=== PATIENT | female | born 1980 | race Caucasian/White ===

== ENCOUNTER → 2021-10-24 09:00 | Outpatient (CLI) | payer OTHER, SELFPAY ==
[2021-10-24 19:58] LABS: Add Manual Diff / Slide Review NO; Basophils Absolute Auto 0 /uL (0-100); Basophils Percent Auto 0.3 % (0-2); Eosinophils Absolute Auto 100 /uL (0-450); Eosinophils Percent Auto 1.2 % (2-4); Hematocrit 37.7 % (36-46); Hemoglobin 12.7 g/dL (12.0-16.0); Lymphocytes Absolute Auto 900 /uL (1100-4500); Lymphocytes Percent Auto 15.7 % (25-40); Mean Corpuscular HGB Conc 33.7 % (30-36); Mean Corpuscular Volume 92.1 fL (80-100); Monocytes Absolute Auto 300 /uL (0-900); Monocytes Percent Auto 5.9 % (3-14); Neutrophils Absolute Auto 4300 /uL (1500-7000); Neutrophils Percent Auto 76.9 % (50-75); Platelet Count 167 X10^3/uL (150-400); Red Blood Cell Count 4.09 X10^6/uL (4.0-5.2); Red Cell Distribution Width 12.5 % (11.6-14.8); White Blood Cell Count 5.6 X10^3/uL (4.5-11.0)
[2021-10-24 20:05] LABS: HEMOLYSIS < 15 (0-50); Iron 108 ug/dL (37-170)
[2021-10-24 20:07] LABS: Alanine Aminotransferase 10 IU/L (<35); Albumin 4.2 g/dL (3.5-5.0); Albumin Globulin Ratio 1.3 (1.0-2.8); Alkaline Phosphatase 63 U/L (38-126); Aspartate Aminotransferase 22 IU/L (14-36); BUN Creatinine Ratio 12.7 (6-22); Bilirubin Total 0.7 mg/dL (0.2-1.3); Blood Urea Nitrogen 8 mg/dL (7-17); Calcium 8.9 mg/dL (8.4-10.2); Carbon Dioxide 26 mmol/L (22-32); Chloride 105 mmol/L (98-107); Cholesterol 142 mg/dL (140-199); Estimated Glomerular Filt Rate > 60 mL/min (>60); Globulin 3.3 g/dL (1.7-4.1); Glucose 89 mg/dL (70-100); HDL Cholesterol 64 mg/dL (40-60); HEMOLYSIS < 15 (0-50); LDL Cholesterol Calculated 68 mg/dL (<100); Potassium 4.2 mmol/L (3.4-5.1); Sodium 139 mmol/L (137-145); Total Protein 7.5 g/dL (6.3-8.2); Triglycerides 49 mg/dL (35-150)
[2021-10-24 20:17] LABS: Percent Iron Saturation 34 % (15-50); Total Iron Binding Capacity 318 ug/dL (265-497); Transferrin 237 mg/dL (206-381)
[2021-10-24 21:12] LABS: Folate 9.2 ng/mL (2.76-20.0); Vitamin B12 > 1000 pg/mL (239-931)
== END ==
PROVIDERS: PCP Family Medicine; Visit Provider Family Medicine
DX: Z00.00 Encounter for general adult medical examination without abnormal findings (principal); R41.89 Other symptoms and signs involving cognitive functions and awareness; Z85.828 Personal history of other malignant neoplasm of skin
CPT/HCPCS: 80053; 80061; 82607; 82746; 83540; 83550; 85025

== ENCOUNTER → 2021-11-08 08:43 | Outpatient (CLI) | payer OTHER, SELFPAY ==
[2021-11-09 06:10] LABS: Candida species Negative (Negative); Gardnerella vaginalis Negative (Negative); Trichomoas vaginalis Negative (Negative)
== END ==
PROVIDERS: PCP Family Medicine; Visit Provider Obstetrics & Gynecology
DX: N89.8 Other specified noninflammatory disorders of vagina (principal)
CPT/HCPCS: 87480; 87510; 87660

== ENCOUNTER → 2021-11-14 11:02 | Outpatient (CLI) | payer OTHER, SELFPAY ==
[2021-11-14 20:48] LABS: Erythrocyte Sedimentation Rate 7 MM/HR (0-20); Hemoglobin A1C% w Est Avg Glu 5.1 % (4.0-6.0)
[2021-11-14 21:08] LABS: Rheumatoid Factor < 8.6 IU/mL (<12.0)
[2021-11-14 21:17] LABS: TSH w/ Reflex to FT4 1.27 uIU/mL (0.47-4.68)
[2021-11-17 14:47] LABS: ANA Screen, IFA Negative (.)
[2021-11-19 21:41] LABS: CCP Antibodies IgG/IgA 9 units (0-19)
== END ==
PROVIDERS: PCP Family Medicine; Visit Provider Family Medicine
DX: R06.81 Apnea, not elsewhere classified (principal); R13.10 Dysphagia, unspecified; R41.89 Other symptoms and signs involving cognitive functions and awareness; R53.83 Other fatigue
CPT/HCPCS: 83036; 84443; 85651; 86038; 86200; 86430

== ENCOUNTER → 2022-03-26 11:44 | Outpatient (CLI) | payer OTHER, SELFPAY ==
--- NOTE | 2022-03-26 11:45 | DI.MG.S_ITS ---
BILATERAL DIGITAL DIAGNOSTIC MAMMOGRAM 3D/2D: 03/26/2022 CLINICAL: Additional evaluation requested from prior study. Comparison is made to exam dated: 01/31/2022 mammogram - outside location. Both breasts are extremely dense, which lowers the sensitivity of mammography (category d />75% glandular tissue). There is an oval asymmetry with a circumscribed margin in the left axilla seen on the mediolateral oblique view only. Density is comparable to the extremely dense glandular tissue seen elsewhere in the breast. No other significant masses, calcifications, or other findings are seen in either breast. Specifically, no finding to explain the patient's intermittent multifocal right breast pain. IMPRESSION: INCOMPLETE: NEEDS ADDITIONAL IMAGING EVALUATION The oval asymmetry in the left breast resembles fibroglandular tissue but remains indeterminate. An ultrasound is recommended. There is no mammographic correlate to the patient's right breast pain. Ultrasound is recommended for full evaluation of these areas. Ultrasound could not be done today, and will be scheduled and performed as soon as possible. Findings and recommendations were conveyed to the patient at time of exam. Based on Tyrer-Cuzick model (a risk assessment model), the patient's lifetime risk is 20.8% and her 10 year risk is 2.7%. If a patient has an elevated risk, a more comprehensive evaluation should be considered and/or a referral to a genetic counselor. The [place] [employer], [employer], and NCCN Guidelines advise the consideration of Breast MRI as an adjunct to screening mammography in patients whose Lifetime risk to develop breast cancer is 20% or higher. This exam was interpreted at Station ID: [id number]. NOTE: For mammograms, a report in lay terms will be sent to the patient. Approximately 15% of breast malignancies will not be visualized mammographically. In the management of a palpable breast mass, a negative mammogram must not discourage biopsy of a clinically suspicious lesion. Electronically Signed By: Merline montenegro/:03/26/2022 12:20:56 letter sent: Additional Imaging Needed ACR BI-RADS Category 0: Incomplete [id number]
== END ==
PROVIDERS: PCP Family Medicine; Referring Provider Family Medicine; Visit Provider Family Medicine
DX: R92.8 Other abnormal and inconclusive findings on diagnostic imaging of breast (principal); N64.89 Other specified disorders of breast
CPT/HCPCS: 77066; G0279

== ENCOUNTER → 2022-04-15 12:43 | Outpatient (CLI) | payer OTHER, SELFPAY ==
--- NOTE | 2022-04-15 | DI.US.S_ITS ---
ULTRASOUND OF LEFT BREAST AND AXILLA: 04/15/2022 CLINICAL: Patient returns today to evaluate an asymmetry in the left axilla. Comparison is made to exams dated: 03/26/2022 mammogram - [facility] and 01/31/2022 mammogram - outside location. Color flow and real-time ultrasound of the left breast axilla were performed. Merrill scale images of the real-time examination were reviewed. No significant abnormalities were seen sonographically in the left axilla. Benign left axillary lymph node is seen. The suspected left axillary ectopic breast tissue is not well appreciated. IMPRESSION: BENIGN There is no sonographic evidence of malignancy. No mass or adenopathy in the left axilla. A 1 year screening tomosynthesis mammogram is recommended. Exam findings were discussed with the patient. Emphasis on tomosynthesis mammogram was made due to the patients increased breast density. Patient would also benefit from a screening breast MRI. Tyrer-Cuzick model estimated patient's lifetime risk is 20.8%. This exam was interpreted at Station ID: [id number]. Electronically Signed By: Kong Daly M.D. [facility]/:04/15/2022 14:18:33 letter sent: Normal Exam Ultrasound BI-RADS: 2 Benign
--- NOTE | 2022-04-15 12:45 | DI.US.S_ITS ---
LIMITED ULTRASOUND OF RIGHT BREAST: 04/15/2022 CLINICAL: Focal right breast pain. Comparison is made to exams dated: 03/26/2022 mammogram - [facility] and 01/31/2022 mammogram - outside location. Real-time ultrasound of the right breast 9-1 o'clock region was performed. Merrill scale images of the real-time examination were reviewed. No significant abnormalities were seen sonographically in the right breast. IMPRESSION: NEGATIVE There is no sonographic evidence of malignancy in the region of right breast pain. A 1 year screening tomosynthesis mammogram is recommended. This exam was interpreted at Station ID: [id number]. Electronically Signed By: Kong Daly M.D. [facility]/:04/15/2022 13:51:04 letter sent: Normal Exam Ultrasound BI-RADS: 1 Negative
== END ==
PROVIDERS: PCP Family Medicine; Referring Provider Family Medicine; Visit Provider Family Medicine
DX: R92.8 Other abnormal and inconclusive findings on diagnostic imaging of breast (principal); N64.4 Mastodynia
CPT/HCPCS: 76642; 76882

== ENCOUNTER → 2022-09-04 13:32 | Outpatient (CLI) | payer OTHER, SELFPAY ==
[2022-09-04 19:25] LABS: Add Manual Diff / Slide Review NO; Basophils Absolute Auto 0 /uL (0-100); Basophils Percent Auto 0.4 % (0-2); Eosinophils Absolute Auto 0 /uL (0-450); Eosinophils Percent Auto 0.4 % (2-4); Hematocrit 37.6 % (36-46); Hemoglobin 12.7 g/dL (12.0-16.0); Lymphocytes Absolute Auto 1000 /uL (1100-4500); Lymphocytes Percent Auto 13.9 % (25-40); Mean Corpuscular HGB Conc 33.8 % (30-36); Mean Corpuscular Hemoglobin 31.3 PG (26-34); Mean Corpuscular Volume 92.7 fL (80-100); Monocytes Absolute Auto 400 /uL (0-900); Monocytes Percent Auto 5.1 % (3-14); Neutrophils Absolute Auto 6000 /uL (1500-7000); Neutrophils Percent Auto 80.2 % (50-75); Platelet Count 185 X10^3/uL (150-400); Red Blood Cell Count 4.06 X10^6/uL (4.0-5.2); Red Cell Distribution Width 12.7 % (11.6-14.8); White Blood Cell Count 7.5 X10^3/uL (4.5-11.0)
[2022-09-04 19:37] LABS: INR 1.1 (0.9-1.3); Prothrombin Time 12.9 SECONDS (10.1-12.7)
[2022-09-04 19:52] LABS: HEMOLYSIS < 15 (0-50); Iron 129 ug/dL (37-170)
[2022-09-04 20:01] LABS: Percent Iron Saturation 39 % (15-50); Total Iron Binding Capacity 327 ug/dL (265-497); Transferrin 233 mg/dL (206-381)
[2022-09-04 20:10] LABS: Vitamin D 25 Hydroxy (D3) 55.6 ng/mL (30.0-100.0)
[2022-09-04 20:56] LABS: Folate 5.9 ng/mL (2.76-20.0); Vitamin B12 Reflex MMA if <400 > 1000 pg/mL (239-931)
== END ==
PROVIDERS: PCP Physician Assistant; Visit Provider Physician Assistant
DX: E55.9 Vitamin D deficiency, unspecified (principal); K06.8 Other specified disorders of gingiva and edentulous alveolar ridge; R53.83 Other fatigue
CPT/HCPCS: 82306; 82607; 82746; 83540; 83550; 85025; 85610

== ENCOUNTER → 2023-10-01 11:36 | Outpatient (CLI) | payer BC, SELFPAY ==
[2023-10-01 14:19] LABS: Cancer Antigen 125 < 5.5 U/mL (0-35)
== END ==
PROVIDERS: PCP Student in an Organized Health Care Education/Training Program; Referring Provider Obstetrics & Gynecology; Visit Provider Obstetrics & Gynecology
DX: N83.8 Other noninflammatory disorders of ovary, fallopian tube and broad ligament (principal)
CPT/HCPCS: 36415; 86304

== ENCOUNTER 2023-10-20 09:20 | Day surgery (SDC) | payer BC, SELFPAY ==
[2023-10-16 09:15] VITALS: BMI 19.3
[2023-10-20] VITALS (7 sets, daily range): BP systolic 83–113; BP diastolic 39–68; PULSE 53–87; RESP 12–17; TEMP 36.4–37; O2SAT 99–100; BMI 19.3
--- NOTE | 2023-10-20 | PATH_ITS ---
[facility] Accession Number: [id number] No. of containers..01 Tissue . 01 Material submitted: . ovary - LEFT OVARY, BILATERAL FALLOPIAN TUBES . 01 Diagnosis: LEFT OVARY AND BILATERAL FALLOPIAN TUBES, BILATERAL SALPINGECTOMY AND LEFT OOPHORECTOMY: Consistent with benign serous cystadenoma. Bilateral fimbriated fallopian tubes with no significant diagnostic alterations. No malignancy. [facility] 10/24/2023 1412 Local . 01 Electronically signed: . Miranda Henderson MD, Pathologist NPI- [id number] . 01 Gross description: . Received in formalin with two patient identifiers and left ovary, bilateral fallopian tubes, are two fimbriated fallopian tubes, the left tube is attached to the presumed left ovary and measures 5.1 x 0.9 cm, while the left ovary weighs 18 grams, and measures 4.3 x 3.4 x 2.7 cm. The right fallopian tube measures 5.2 x 0.8 cm. Both tubes have violaceous smooth serosa with no cysts identified and unremarkable stellate lumens. . The left ovary is sanz and slightly distended, and is inked blue. Sectioning reveals a multiloculated cystic structure occupying the entirety of the cut surface with contents ranging from sanz and serous to yellow and gelatinous to semi-solid and hemorrhagic. The viramontes average 0.2 cm thick with some of the thicker areas of the wall consistent with distorted unremarkable ovarian parenchyma. No excrescences are identified. Filler Shredding Machine Loader sections are submitted as follows: . A1: Left fallopian tube to include one-half of bisected fimbriae and cross sections. A2: Right fallopian tube to include one-half of bisected fimbriae and cross sections. A3: Filler Shredding Machine Loader ovarian cyst. ([id number]) /MRV 10/24/2023 1413 Local . 01 Pathologist provided ICD-10: D27.1 . 01 CPT . 071888 Specimen Comment: A courtesy copy of this report has been sent to [phone] Performed at: [address] [id number] MD Noah Stephenson MD Phone: [phone]
--- NOTE | 2023-10-20 | PATH_ITS ---
Note [facility] Accession Number: [id number] TESTS RESULT FLAG UNITS REF RANGE LAB Clinician Provided Cytology Information No. of containers..01 Other (Miscellaneous) Source: LEFT OVARIAN CYST FLUID DIAGNOSIS: LEFT OVARIAN CYST FLUID, ASPIRATION. NEGATIVE FOR MALIGNANT CELLS. RARE MACROPHAGES AND PROTEINACEOUS MATERIAL, COMPATIBLE WITH CYST CONTENTS. NO EPITHELIAL CELLS ARE SEEN. SCANT CELLULARITY. THIS INTERPRETATION INCLUDES EVALUATION OF A CELL BLOCK. Pathologist ICD10: N83.292 Signed out by: Martine Hurd MD, Pathologist NPI- [id number] Performed by: Wenceslao Reyes, Sleeve Turner ([facility]) Gross description: 7 CC, YELLOW, HAZY RECEIVED: FRESH IN BLUE CAP CONTAINER.VO /VDU 10/21/2023 0835 Local FLAG LEGEND: L-Low Normal,H-High Normal,LL-Alert Low,HH-Alert High <-Panic Low,>-Panic High,A-Abnormal,AA-Critical Abnormal Performed at: 01 =Z [facility] [address], [place] [address] Noah Stephenson MD, Performed at: [address] [facility] [address], [place], [place] [id number] MD Noah Stephenson MD Phone: [phone]
--- NOTE | 2023-10-20 11:01 | P.HPOB_ITS ---
History of Present Illness History of Present Illness Reason for admission: pelvic mass Narrative: Diana Kline is a 43 year old female G0 who presents for a laparoscopic removal of left ovary and bilateral tubes secondary to a complex left ovarian cyst. Normal CA 125 Patient also has a tight band in the vagina that I will release. [facility] Medical History (Updated 10/16/23 @ 09:26 by Tiesha Ledesma RN) Anesthesia complication Vulvar atrophy Vaginal discharge Fatigue Dysphagia Breathlessness Wears glasses Eczema (~2012) Acne Asthma Restless leg syndrome Lower back injury (~2006) Scoliosis (~1994) Chicken pox (~1986) Raynaud disease Preventative health care Cognitive impairment History of basal cell cancer Surgical History Anesthesia [place] teeth removed Status post Mohs surgery History of rhinoplasty (~2007) Family History Mother Hypothyroidism History of hip replacement Sister Brain tumor (benign) Grandfather Cancer Grandmother History of brain shunt Breast cancer Family/Other Shingles Family/Other Cancer Social History household members: spouse Smoking Status: Never smoker alcohol intake: current Meds Home Medications and Allergies Home Medications Medication Instructions Recorded Confirmed Type adapalene 0.1 %-benzoyl peroxide 1 applic topical DAILY 10/30/21 10/20/23 History 2.5 % topical gel with pump (Epiduo) cholecalciferol (vitamin D3) 25 25 mcg PO DAILY 10/30/21 10/20/23 History mcg (1,000 unit) capsule vitamin B complex (B 1 tab PO DAILY 10/30/21 10/20/23 History Complex-Vitamin B12 tablet) levonorgestrel 21 mcg/24 hours (8 intrauterine 11/07/21 10/01/23 History yrs) 52 mg intrauterine device (Mirena) ginkgo biloba leaf extract 120 mg 120 mg PO DAILY To try to improve 08/27/22 10/20/23 History capsule my memory. lysine 500 mg tablet (L-Lysine) 500 mg PO DAILY To try to improve 08/27/22 10/20/23 History my memory. estradiol 0.01% (0.1 mg/gram) See Rx Instructions vaginal DAILY 12/16/22 10/20/23 Rx vaginal cream (Estrace) #42.5 grams Allergies Allergy/AdvReac Type Severity Reaction Status Date / Time Sulfa (Sulfonamide Allergy Intermediate Hives Verified 10/20/23 09:40 Antibiotics) Exam Vital Signs (past 8 hours): - 10/20/23 09:54 Temperature 98.2 F Pulse Rate 87 Respiratory Rate 17 Blood Pressure 113/68 Pulse Oximetry 100 Oxygen Delivery Method Room Air Oxygen Delivery Method Room Air Narrative Exam Narrative: HEENT: No thyromegaly, no anterior cervical or supraclavicular lymphadenopathy. Lungs:Clear to auscultation bilaterally, no wheezes. Cardiovascular: Regular rate and rhythm, no murmurs, rubs, or gallops. Abdomen: No scars. No hepatosplenomegaly. No masses palpable. External genitalia: Normal Vagina: On the left side a few inches in there is a tight band that is painful to palpation. Cervix: Normal Bimanual exam: 6 Week size anteverted uterus. Mobile. Left adnexal fullness and tenderness. Extremities: No edema Assessment & Plan Assessment & Plan narrative: Assessment: 43-year-old 0 with a complex left ovarian cyst Does not desire children Tight vaginal band on the left side Plan: Laparoscopic left oophorectomy and bilateral salpingectomy Release tight vaginal band The risks, benefits, and alternatives to the procedure were explained to the patient. The risks including bleeding, infection, injury to the bowel, bladder, or ureters. She understands these risks and agrees to proceed. A full par Q was held and consent form was signed.
--- NOTE | 2023-10-20 11:04 | PM.PREOP ---
Pre-operative Note Interval Note History & Physical reviewed/Exam performed by Physician: Yes Changes to H&P: No H&P completed within 30 days and has changed as indicated here:: 10/20/23
--- NOTE | 2023-10-20 11:38 | SUR.OPER ---
Lithotomy on padded OR bed, head on pillow, arms secured on padded arm boards at <90 degrees abduction. Legs secured in padded yellow fins stirrups.
--- NOTE | 2023-10-20 12:24 | PM.GYNOP.1 ---
Operative Date/Time/Diagnoses Date of procedure: 10/20/23 Time of procedure: 12:24 Pre-op diagnosis: Complex left ovarian mass Post-op diagnosis: same Procedure & Clinicians Procedure: Procedures Operation Date: 10/20/23 10:45 <No data on this case meets the specified criteria> Laparoscopic left salpingo-oophorectomy and right salpingectomy Indications: Complex left ovarian mass on the left ovary Surgeon: Jesenia Denise Anesthesia Type: General and Local Operative Notes Findings: 6 week size anteverted uterus Normal tubes Complex left ovarian cyst measuring 7 cm Normal right ovary Normal appendix Normal liver and gallbladder Closure Type: not applicable Specimen(s): right tube and left tube & ovary Estimated blood loss (mL): 5 Blood products transfused: none Procedure in detail: After informed consent was obtained, the patient was taken to the operating room where she was placed in the dorsal supine position. After adequate general endotracheal anesthesia was achieved, she was placed in the dorsal lithotomy position, and prepped and draped in the usual sterile fashion. A time-out was performed. A bivalve speculum was placed into the vagina and the anterior lip of the cervix was grasped with a single-tooth tenaculum. The cervical os was sequentially dilated until the Zumi uterine manipulator could pass easily into the endometrial cavity. The single-tooth tenaculum was removed from the anterior lip of the cervix. The bivalve speculum was removed from the vagina. Attention was then turned to the abdomen where 6 cc of 0.5% Marcaine with epinephrine were injected in the umbilical fold. A 5 mm incision was made. The Veress needle was placed into the peritoneal cavity, and its placement confirmed by aspiration and drop test. The abdominal cavity was insufflated with 3.4 L of CO2. The Veress needle was removed, and a 5 mm trocar was placed without difficulty. Two other incisions were made 4 cm lateral to the midline after 6 cc of 0.5% Marcaine with epinephrine were injected. Two 5 mm trocars were placed under direct visualization. The pelvis and abdomen were examined with the findings noted above. The left tube and ovary were grasped with an atraumatic grasper. The infundibulopelvic ligament was cauterized and cut with the power seal. This was continued down along the mesosalpinx to the cornua of the uterus. The tube and ovary were amputated at the cornua. Tube and ovary were placed into the anterior cul-de-sac. The right tube was grasped with an atraumatic grasper. The mesosalpinx was cauterized and cut all the way to the cornua of the uterus. The tube was amputated at the cornua. The tube was removed through the right lateral trocar. 6 cc of 0.5% Marcaine with epinephrine were injected above the pubic symphysis. A 12 mm incision was made. A 12 mm trocar was placed under direct visualization. The small endobag was placed through the suprapubic trocar. The left tube and ovary were placed into the bag. The trocar was removed and the edges of the bag were brought up through the skin. The fascial incision was extended slightly with the Pompa scissors. The cyst was drained of approximately 8 cc of clear yellow fluid. This was sent off to cytology. The bag with the remaining ovary and tube were then removed through the incision. The fascial incision was closed with 0 Vicryl in a running fashion. The abdomen was re-insufflated with carbon dioxide gas. There was no bleeding noted. The instruments were removed from the abdomen. The CO2 was allowed to escape. All of the incisions were closed with 4-0 Monocryl in a subcuticular fashion. Steri-Strips and Allevyn dressings were placed. The Zumi uterine manipulator was removed from the uterus. Sponge, lap, and instrument counts were correct x2. The patient tolerated the procedure well, and was taken to PACU in stable condition. Complications: none Post-operative Condition: stable Disposition: PACU Plan for aftercare: Home after recovery
[2023-10-20] MEDS: OXYCODONE IR 5 MG TABLET PO (14:21)
== END 2023-10-20 14:46 | disposition home or self-care (01) ==
PROVIDERS: PCP Student in an Organized Health Care Education/Training Program; Referring Provider Obstetrics & Gynecology; Visit Provider Obstetrics & Gynecology
PROC: (CPT 58661; principal; 2023-10-20 10:45)
DX: D27.1 Benign neoplasm of left ovary (principal)
CPT/HCPCS: 58661; 82962; J1100; J1885; J2250; J2405; J2704; J3010